=== PATIENT | male | born 1940 | race Two or more races ===

== ENCOUNTER 2024-06-12 05:54 | Day surgery (SDC) | payer MEDICARE, OTHER ==
[2024-06-12] MEDS ORDERED: LIDOCAINE HCL-MPF 1% 5 ML VIAL ONE (06:29)
[2024-06-12] MEDS ORDERED: TETRACAINE HCL 0.5% OPHT DROP 2 ML BOTTLE ONE ×2 (06:29→06:31)
[2024-06-12] MEDS ORDERED: BALANCED SALT IRRIG SOLN COMB2 15 ML IRRIG.SOLN ONE ×2 (06:29→08:38)
[2024-06-12] MEDS ORDERED: NEO/POLYMYX B/DEXAME OPHT OINT 3.5 GM TUBE ONE (06:29)
[2024-06-12] MEDS ORDERED: PILOCARPINE 1% OPHT DROP 15 ML BOTTLE ONE (06:29)
[2024-06-12] MEDS ORDERED: TRYPAN BLUE 0.5 ML DISP.SYRIN ONE (06:29)
[2024-06-12] MEDS ORDERED: ACETYLCHOLINE CHLORIDE 1% OPHT 1 EA KIT ONE (06:30)
[2024-06-12] MEDS ORDERED: CIPROFLOXACIN 0.3% OPHT DROP 2.5 ML BOTTLE ONE (06:30)
[2024-06-12] MEDS ORDERED: HYALURONATE SODIUM 12.8 MG/0.8 ML DISP.SYRIN ONE (06:30)
[2024-06-12] MEDS ORDERED: HYALURONATE SODIUM 8.5 MG/0.85 ML ONE (06:30)
[2024-06-12] MEDS ORDERED: BUPIVACAINE PF 0.5% 30 ML VIAL ONE (06:30)
[2024-06-12] MEDS ORDERED: CYCLOPENTOLATE 1% OPHT DROP 2 ML BOTTLE ONE (06:31)
[2024-06-12] MEDS ORDERED: PHENYLEPHRINE 2.5% OPHT DROP 2 ML BOTTLE ONE (06:31)
[2024-06-12] MEDS ORDERED: KETOROLAC 0.5% OPHT DROP 3 ML BOTTLE ONE (06:31)
[2024-06-12] MEDS ORDERED: EPINEPHRINE-PF 1:1000 1 MG/ML AMPUL/VIAL ONE (06:32)
[2024-06-12 06:55] LABS: BASOPHILS % (AUTO) 0.9 % (0.0-2.0); EOSINOPHILS # (AUTO) 0.1 K/uL (0.0-0.7); HEMATOCRIT 38.2 % (36.7-47.1); HEMOGLOBIN 12.6 g/dL (12.5-16.3); LYMPHOCYTES # (AUTO) 1.6 K/uL (0.8-4.8); LYMPHOCYTES % (AUTO) 29.6 % (20.5-51.5); MEAN CORPUSCULAR HGB CONC 33 g/dL (32.5-36.3); MEAN CORPUSCULAR VOLUME 97.4 fL (73.0-96.2); MONOCYTES # (AUTO) 0.6 K/uL (0.1-1.30); MONOCYTES % (AUTO) 10.7 % (0.0-11.0); NEUTROPHILS # (AUTO) 3.1 K/uL (1.8-8.9); NEUTROPHILS % (AUTO) 57.8 % (38.5-71.5); PLATELET COUNT (AUTO) 155 K/uL (152-348); RED BLOOD CELL COUNT(AUTO) 3.92 MIL/uL (4.06-5.63); WHITE BLOOD COUNT (AUTO) 5.4 K/uL (3.6-10.2)
[2024-06-12] MEDS ORDERED: MITOMYCIN 5 MG, WATER FOR INJECTION,STERILE 10 ML XX ONE (07:00)
[2024-06-12] MEDS ORDERED: BALANCED SALT IRRIG SOLN COMB1 500 ML, EPINEPHRINE-PF 1:1000 1 MG IO ONE (07:15)
[2024-06-12 07:22] LABS: DIFFERENTIAL COMMENT 1
[2024-06-12] MEDS ORDERED: LIDOCAINE-MPF 2% 5 ML VIAL ONE (08:28)
[2024-06-12] MEDS ORDERED: PROPOFOL 200 MG/20 ML BOTTLE ONE (08:30)
[2024-06-12] MEDS ORDERED: LIDOCAINE 1%-EPI 1:100,000 20 ML VIAL ONE (08:38)
[2024-06-12 10:45] VITALS: TEMP 97.4
== END 2024-06-12 11:00 | disposition home or self-care (01) ==
LOC: DS 05:54
PROVIDERS: ATTEND Dermatology MOHS-Micrographic Surgery
DX: H25.89 Other age-related cataract (principal); H40.89 Other specified glaucoma; I50.9 Heart failure, unspecified; I25.10 Atherosclerotic heart disease of native coronary artery without angina pectoris; M19.90 Unspecified osteoarthritis, unspecified site; F32.9 Major depressive disorder, single episode, unspecified; Z79.899 Other long term (current) drug therapy; Z98.890 Other specified postprocedural states
CPT/HCPCS: 66170; 66984; 71045; 85025; 85730; 93005; J0171; J3490; J7040; J7321; J9280; A4663; J3590; Q9968; V2632

== ENCOUNTER 2024-08-04 07:08 | Day surgery (SDC) | payer MEDICARE, OTHER ==
[~2024-08-04 07:08] MED LIST: BALANCED SALT IRRIG SOLN COMB1 500 ML, EPINEPHRINE-PF 1:1000 1 MG IO ONE
[2024-08-04] MEDS ORDERED: CIPROFLOXACIN 0.3% OPHT DROP 2.5 ML BOTTLE ONE (07:13)
[2024-08-04] MEDS ORDERED: TETRACAINE HCL 0.5% OPHT DROP 2 ML BOTTLE ONE ×2 (07:14→07:55)
[2024-08-04] MEDS ORDERED: PHENYLEPHRINE 2.5% OPHT DROP 2 ML BOTTLE ONE (07:14)
[2024-08-04] MEDS ORDERED: CYCLOPENTOLATE 1% OPHT DROP 2 ML BOTTLE ONE (07:14)
[2024-08-04] MEDS ORDERED: KETOROLAC 0.5% OPHT DROP 3 ML BOTTLE ONE (07:14)
[2024-08-04] MEDS: TETRACAINE HCL 0.5% OPHT DROP 2 ML BOTTLE RIGHTEYE ONE (07:50)
[2024-08-04] MEDS: CIPROFLOXACIN 0.3% OPHT DROP 2.5 ML BOTTLE RIGHTEYE SCH (07:52)
[2024-08-04] MEDS: KETOROLAC 0.5% OPHT DROP 3 ML BOTTLE RIGHTEYE SCH (07:52)
[2024-08-04 07:53] LABS: BASOPHILS % (AUTO) 0.7 % (0.0-2.0); EOSINOPHILS % (AUTO) 0.6 % (0.0-7.0); HEMATOCRIT 38.8 % (36.7-47.1); HEMOGLOBIN 12.8 g/dL (12.5-16.3); LYMPHOCYTES # (AUTO) 1.7 K/uL (0.8-4.8); LYMPHOCYTES % (AUTO) 30.3 % (20.5-51.5); MEAN CORPUSCULAR HEMOGLOBIN 30.8 uug (23.8-33.4); MEAN CORPUSCULAR HGB CONC 33 g/dL (32.5-36.3); MEAN CORPUSCULAR VOLUME 93.7 fL (73.0-96.2); MONOCYTES # (AUTO) 0.6 K/uL (0.1-1.30); MONOCYTES % (AUTO) 10.9 % (0.0-11.0); NEUTROPHILS # (AUTO) 3.2 K/uL (1.8-8.9); NEUTROPHILS % (AUTO) 57.5 % (38.5-71.5); PLATELET COUNT (AUTO) 142 K/uL (152-348); RED BLOOD CELL COUNT(AUTO) 4.14 MIL/uL (4.06-5.63); RED CELL DISTRIBUTION WIDTH 15.6 % (12.1-16.2); WHITE BLOOD COUNT (AUTO) 5.5 K/uL (3.6-10.2)
[2024-08-04] MEDS: CYCLOPENTOLATE 1% OPHT DROP 2 ML BOTTLE RIGHTEYE SCH (07:53)
[2024-08-04] MEDS ORDERED: TRYPAN BLUE 0.5 ML DISP.SYRIN ONE (07:54)
[2024-08-04] MEDS: PHENYLEPHRINE 2.5% OPHT DROP 2 ML BOTTLE RIGHTEYE SCH (07:54)
[2024-08-04] MEDS ORDERED: PILOCARPINE 1% OPHT DROP 15 ML BOTTLE ONE (07:54)
[2024-08-04] MEDS ORDERED: NEO/POLYMYX B/DEXAME OPHT OINT 3.5 GM TUBE ONE (07:55)
[2024-08-04] MEDS ORDERED: ACETYLCHOLINE CHLORIDE 1% OPHT 1 EA KIT ONE (07:55)
[2024-08-04] MEDS ORDERED: BUPIVACAINE PF 0.5% 30 ML VIAL ONE (07:55)
[2024-08-04] MEDS ORDERED: LIDOCAINE-MPF 2% 5 ML VIAL ONE (07:55)
[2024-08-04] MEDS ORDERED: EPINEPHRINE-PF 1:1000 1 MG/ML AMPUL/VIAL ONE (07:55)
[2024-08-04] MEDS ORDERED: HYALURONATE SODIUM 12.8 MG/0.8 ML DISP.SYRIN ONE (07:56)
[2024-08-04] MEDS ORDERED: BALANCED SALT IRRIG SOLN COMB2 15 ML IRRIG.SOLN ONE ×2 (07:56→11:26)
[2024-08-04] MEDS ORDERED: HYALURONATE SODIUM 8.5 MG/0.85 ML ONE ×2 (07:56→09:29)
[2024-08-04 08:00] LABS: DIFFERENTIAL COMMENT 1
[2024-08-04 08:03] LABS: CALCIUM 9.3 mg/dL (8.5-10.1); CARBON DIOXIDE 25 mmol/L (21-32); CHLORIDE 109 mmol/L (98-107); GLUCOSE 112 mg/dL (74-106); POTASSIUM 4.3 mmol/L (3.5-5.1); SODIUM SERUM 144 mmol/L (136-145); UREA NITROGEN, BLOOD 26 mg/dL (7-18)
[2024-08-04] MEDS ORDERED: FENTANYL CITRATE 100 MCG/2 ML AMPUL ONE (09:00)
[2024-08-04] MEDS ORDERED: MIDAZOLAM HCL 2 MG/2 ML VIAL ONE (09:00)
[2024-08-04] MEDS ORDERED: diphenhydrAMINE 50 MG/1 ML VIAL ONE (10:30)
[2024-08-04 12:25] VITALS: TEMP 87.4
== END 2024-08-04 12:36 | disposition home or self-care (01) ==
LOC: DS 07:08
PROVIDERS: ATTEND Dermatology MOHS-Micrographic Surgery
DX: H25.89 Other age-related cataract (principal); I11.0 Hypertensive heart disease with heart failure; I50.9 Heart failure, unspecified; I25.10 Atherosclerotic heart disease of native coronary artery without angina pectoris; I48.91 Unspecified atrial fibrillation; M19.90 Unspecified osteoarthritis, unspecified site; F32.9 Major depressive disorder, single episode, unspecified; Z87.440 Personal history of urinary (tract) infections; Z86.73 Personal history of transient ischemic attack (TIA), and cerebral infarction without residual deficits; Z95.1 Presence of aortocoronary bypass graft; Z79.899 Other long term (current) drug therapy; Z98.890 Other specified postprocedural states
CPT/HCPCS: 36415; 85025; 85730; A4663; J0171; J1200; J2250; J3010; J3490; J3590; J7120; J7321; Q9968; V2632